=== PATIENT | female | born 1960 | race Caucasian/White ===

== ENCOUNTER → 2023-02-22 15:30 | Outpatient (BNVA) | payer OTHER, SELFPAY | PROVIDERS: Referring Provider Dermatology; Visit Provider Specialist | DX: M25.551 Pain in right hip (principal); M54.50 Low back pain, unspecified; M89.9 Disorder of bone, unspecified; R93.7 Abnormal findings on diagnostic imaging of other parts of musculoskeletal system; M25.561 Pain in right knee | CPT/HCPCS: 73502; 73560; 73565 ==

== ENCOUNTER 2023-03-05 15:50 | Outpatient (CLI) | payer OTHER, SELFPAY ==
--- NOTE | 2023-03-05 16:45 | MR_ITS ---
WS: [id number] EXAMINATION: MR hip RT wo con* [id number] ORDER DATE: 03/05/2023 4:34 PM COMPARISON: None. HISTORY: hip pain, abnormal xray CONTRAST: None. TECHNIQUE: Coronal STIR of the Pelvis. Coronal proton density, coronal T1, axial T2 fat sat, axial T1 , sagittal T2 fat sat, and sagittal T1 performed of the hip. After contrast, axial T1 fat sat, coron al T1 fat sat, and sagittal T1 fat sat were performed. FINDINGS: Advanced degenerative arthritis RIGHT hip with diffuse abnormal infiltrative bone marrow process invo lving the RIGHT acetabulum and RIGHT ilium. Mild surrounding associated edema. Small RIGHT hip effusi on. Only trace edema in the RIGHT femoral head. No evidence of AVN in the femoral head. Edema in the RIGHT adjacent gluteus musculature. Differential considerations include diffuse infiltrative marrow process such as Paget's disease, Lymp polina and metastatic disease Chronic infection is an additional consideration. This involves the visu alized proximal pubic rami extending to the pubic root. Sacrum is normal in appearance. LEFT ilium is normal in appearance. Normal LEFT hip. Otherwise normal visualized soft tissues. MR/MR hip RT wo con* [id number] IMPRESSION: 1. Unusual diffuse infiltrative marrow process involving the RIGHT ilium with relative sparing of the RIGHT femoral head and sacrum. 2. Differential considerations include nonspecific infiltrative marrow process such as lymphoma, metastatic disease, or possibly Paget's disease. Chronic ost eomyelitis is an additional consideration. Small RIGHT hip effusion. Consider f urther evaluation with CT-guided bone biopsy. Bone scan may add additional info rmation. 3. Only trace edema in the RIGHT femoral head. Normal bone marrow signal in th e LEFT femoral head.
== END 2023-03-05 15:51 | disposition home or self-care (01) ==
PROVIDERS: PCP Family Medicine; Visit Provider Specialist
DX: M25.551 Pain in right hip (principal); M89.9 Disorder of bone, unspecified
CPT/HCPCS: 73721

== ENCOUNTER → 2023-03-10 11:05 | Outpatient (BNVA) | payer OTHER, SELFPAY | PROVIDERS: PCP Family Medicine; Visit Provider Specialist | DX: M89.9 Disorder of bone, unspecified (principal); R93.89 Abnormal findings on diagnostic imaging of other specified body structures; M25.551 Pain in right hip | CPT/HCPCS: 72170 ==

== ENCOUNTER 2023-03-18 22:29 | Emergency (ER) | payer OTHER, SELFPAY ==
[2023-03-18 22:35] VITALS: BP 186/96; PULSE 55; RESP 20; TEMP 36.3; O2SAT 97; BMI 34.6
--- NOTE | 2023-03-18 22:59 | ED_ITS ---
HPI - Back Pain/Injury General: Chief Complaint: Back Pain/Injury Stated Complaint: Rt and Back Pain Time Seen by Provider: 03/18/23 22:58 History of Present Illness: 63-year-old female comes in today with complaints of left hip pain radiating to the knee. Patient reports no falls or injuries. Review of patient's record notes that she is being evaluated further for lytic lesions of the right hip and pelvis area. Patient is scheduled to have a MRI of her knee tomorrow for furth er evaluation of the knee pain. Review of x-rays and MRI of the hip note the lytic lesions. Review of the knee notes some degenerative changes in the knee. Dr. Torres has seen the patient and is proceeding to get referral to patient's oncology for further evaluation of the abnormalities on the imaging. Patient reports understanding of this evaluation and treatment plan. Patient reports difficulty maintaining control of pain at home with acetaminophen and ibuprofen. Associated symptoms: Deny fever(s) or vomiting Review of Systems General: Reports: 10 or more systems reviewed and unremarkable except in HPI and below Const: Denies: fever(s) Card: Denies: chest pain Resp: Denies: dyspnea GI: Denies: vomiting : Denies: flank pain Musc: Reports: joint pain (Right hip) Skin/Breast: Denies: rash Neuro: Denies: headache(s) PFSH ED PFSH: Social History Smoking and tobacco status: never smoked Second hand smoke exposure: No Smoking risk assessment/counseling performed?: No Alcohol intake: never Desire information about alcohol rehabilitation?: No Counseling given: No Substance/Drug Use: never Desire information about substance/drug rehabilitation?: No Counseling given: No Adopted: No Caregiver/support person: No Lives independently: Yes Housing: Manufactured/Mobile home Number of children: 2 Number of grandchildren: 11 Highest education level completed: Some College, No Degree service: No Current occupational status: employed Current occupation: [employer] Current occupational exposures/hazards: No Pets and animals: No Sexually active: No Do you think of yourself as: Straight/Heterosexual Current gender identity: Female Special kevin needs: No Agree to transfusion: Yes Physical Exam Const: COMMON NORMALS: alert HENMT: TYMPANIC MEMBRANE: TM abnormal TM laterality: left Details: bulging and dull THROAT: posterior oropharynx normal Neck/C-Spine: CERVICAL SPINE: No Cervical spine tenderness Lymph: LYMPHATIC: No lymphadenopathy Resp: COMMON NORMALS: normal respiratory effort and clear to auscultation bilaterally AUSCULTATION: clear to auscultation bilaterally Cardio: COMMON NORMALS: regular rate and regular rhythm RATE: regular rate RHYTHM: regular rhythm Back/Pelvis: THORACIC SPINE/UPPER BACK: No thoracic spinal tenderness LUMBAR SPINE/LOWER BACK: No lumbar spinal tenderness Extremity: NARRATIVE EXTREMITY EXAM: No significant swelling or redness to the lower extremities. LEFT LOWER EXTREMITY: Yes hip joint (Increased pain and decreased range of motion of the right hip.) Neuro: SENSORIUM/ORIENTATION: Yes alert Skin: COMMON NORMALS: turgor normal GENERAL SKIN EXAM: turgor normal Course Vital Signs: Vital signs: Vital Signs Temperature 97.4 F L 03/18/23 22:35 Pulse Rate 55 L 03/18/23 22:35 Respiratory Rate 20 H 03/18/23 22:35 Blood Pressure 186/96 03/18/23 22:35 Pulse Oximetry 97 03/18/23 22:35 Oxygen Delivery Me thod Room Air 03/18/23 22:35 MDM - Back Pain/Injury Medical Decision Making 63-year-old female patient comes in today for complaints of pain in the right hip radiating to the knee. Patient appears nontoxic. Patient appears in moderate to severe pain. Decreased range of motion of the hip due to pain. Respirations are even lungs are clear to auscultation. Skin is warm and dry. Differential diagnosis includes pain due to metastasis of the bone, arthritis, sciatica. Review of the record and abnormalities noted with imaging suspect patient probably had pain secondary to lytic lesions to the right hip and pelvis. Patient was given 4 mg of morphine for better control of pain in the ER. We will continue patient on tramadol to use as needed. Recommend follow-up with primary care or specialist for further treatment. Before discharge patient did make some complaints of her left ear having pain and decreased hearing. On exam of the ear is noted patient has fluid behind it and is bulging with minimal to no redness. Believe the patient probably has serous otitis. Patient had recently just finished a round of methylprednisolone for the ear with no relief. Due to the persistence of symptoms we will go ahead and treat with Augmentin 875 twice a day for 7 days for otitis serous. Patient stated understanding and agreed to plan. Discharge Plan Discharge Patient Disposition: Home Clinical Impression: Hip pain, right, Radiodense bone lesion present on x-ray Otitis media, serous Qualifiers: Chronicity: unspecified Laterality: left Qualified Code(s): H65.92 - Unspecified nonsuppurative otitis media, left ear Condition: Stable Prescriptions: New tramadol 50 mg tablet 50 mg PO Q6H PRN (Reason: pain (scale score 7-10)) Qty: 20 0RF amoxicillin-pot clavulanate 875-125 mg tablet 1 tab PO BID Qty: 13 0RF No Action ibuprofen 200 mg tablet 200 mg PO Q6H PRN Discharge Orders: Discharge ED (Routine); Ordered 03/18/23 Ordered By: Hermelindo Diaz Referrals: Farheen Wilks MD [Primary Care Provider] - Discharge Diet: Usual diet Discharge Activity: Increase activity as tolerated Patient Instructions: Opioid Safety, Pain Management Activity Restrictions/Additional Instructions: Home and rest. Activity as tolerated. Use acetaminophen and ibuprofen to control pain. Use tramadol for severe pain. Use ice or heat for further pain relief. Follow-up with primary care for further evaluation and treatment of pain. Return to ED for new concerns. Coding Level of Care Code ED Instrumentation Instructor for Ramón Martin
[2023-03-18] MEDS: morphine 4 mg/mL SDV 1 mL IM (23:38)
[2023-03-18] MEDS: ondansetron 4 MG Tablet PO (23:38)
[2023-03-18] MEDS: amoxicillin-clav 875-125 mg Tablet 1 TAB PO (23:38)
[2023-03-18 23:45] VITALS: BP 159/65; PULSE 87; RESP 18; O2SAT 97
== END 2023-03-18 23:59 | disposition home or self-care (01) ==
PROVIDERS: Emergency Provider Nurse Practitioner Family; PCP Family Medicine
DX: M25.552 Pain in left hip (principal); M89.9 Disorder of bone, unspecified; H65.92 Unspecified nonsuppurative otitis media, left ear
CPT/HCPCS: 96372; 99284; J2270; Q0162

== ENCOUNTER 2023-03-19 14:49 | Outpatient (CLI) | payer OTHER, SELFPAY ==
--- NOTE | 2023-03-19 15:15 | MR_ITS ---
WS: [id number] MRI RIGHT KNEE NONCONTRAST TECHNIQUE: Axial PD, coronal PD fat sat, coronal PD, sagittal PD, and sagittal PD fat-sat images obta ined. CLINICAL INFORMATION: positive mc cameron's sign COMPARISON: None. FINDINGS: Distal quadriceps and patella tendons are intact. Normal ACL and PCL. Small suprapatellar protrusion . Soft tissue edema about the RIGHT knee. Hypertrophic changes about the joint line. Moderate chondro malacia patella. Medial and lateral meniscus are normal in appearance. Normal medial and lateral varun ateral ligaments. Normal popliteal fossa. Chronic thinning of the medial and lateral meniscus. Periph eral extrusion of the lateral meniscus. Complex tear involving the anterior horn lateral meniscus with blunting. Chronic intrasubstance sign al abnormality involving the posterior horn medial meniscus. Tiny tear involving the posterior horn m edial meniscus extending to the articular surface. Moderate to advanced tricompartmental arthritis RIGHT knee. Hypertrophic patella. MR/MR knee RT wo con* [id number] IMPRESSION: 1. Normal ACL and PCL. 2. Moderate to advanced tricompartmental arthritis RIGHT knee with hypertrophi c changes along the joint line. 3. Grade III chondromalacia patella. 4. Chronic thinning with peripheral extrusion of the lateral meniscus. Complex tear involving the anterior horn lateral meniscus with blunting of the anterio r horn. 5. Tiny tear involving the posterior horn medial meniscus. 6. Normal medial and lateral collateral ligaments. Outbridge grading: grade III: partial-thickness cartilage loss with focal ulcer ation
== END 2023-03-19 14:50 | disposition home or self-care (01) ==
PROVIDERS: PCP Family Medicine; Visit Provider Specialist
DX: S83.206A Unspecified tear of unspecified meniscus, current injury, right knee, initial encounter (principal); X58.XXXA Exposure to other specified factors, initial encounter; M22.41 Chondromalacia patellae, right knee
CPT/HCPCS: 73721

== ENCOUNTER 2023-04-09 13:06 | Outpatient (CLI) | payer OTHER, SELFPAY ==
--- NOTE | 2023-04-09 13:30 | CT_ITS ---
WS: [id number] NONCONTRAST CT RIGHT HIP TECHNIQUE: Noncontrast CT RIGHT with coronal and sagittal reformatted images. CLINICAL INFORMATION: abnormal MRI suggestive of tumor, hip pain COMPARISON: None. DLP: 1042.[address] scans at [facility] use at least one of these dose optimization techniques: automated e xposure control; mA and/or kV adjustment per patient size (includes targeted exams where dose is matc hed to clinical indication); or iterative reconstruction. FINDINGS: Again seen is the diffuse infiltrative lytic marrow process involving the RIGHT ilium extending into the acetabulum. This does not cross the SI joint. Sacrum appears normal. Small joint effusion. No acu te fractures. Moderate degenerative narrowing RIGHT hip. Femoral head appears. Findings are similar t o the prior MRI. Associated soft tissue thickening about the ilium similar to the prior MRI. Differen tial considerations are unchanged including metastatic disease, lymphoma, multiple myeloma, and prima ry osseous neoplasm. Paget's disease less likely. Partially visualized haziness in the central mesentery. This can be further evaluated with CT abdomen pelvis. CT/CT hip RT wo con* [id number] IMPRESSION: 1. Diffuse irregular infiltrative lytic marrow process stable in appearance s reva the prior MRI. 2. Small RIGHT joint effusion. Mild soft tissue thickening about the RIGHT briseyda um. 3. Differential considerations are unchanged from previous but suspicious for metastatic disease in a patient this age. Consider further evaluation with bone scan and CT-guided biopsy. 4. Partially visualized haziness in the central mesentery. Recommend further e valuation with contrast-enhanced CT abdomen pelvis.
== END 2023-04-09 13:07 ==
PROVIDERS: PCP Family Medicine; Visit Provider Specialist
DX: M89.9 Disorder of bone, unspecified (principal); R93.89 Abnormal findings on diagnostic imaging of other specified body structures; M25.551 Pain in right hip
CPT/HCPCS: 72170; 73700

== ENCOUNTER 2023-07-23 15:11 | Outpatient (CLI) | payer OTHER, SELFPAY ==
--- NOTE | 2023-07-23 15:30 | CT_ITS ---
WS: [id number] CT ABDOMEN AND PELVIS WITH CONTRAST HISTORY: metastatic disease, history of breast cancer. TECHNIQUE: Imaging performed of the abdomen and pelvis with IV contrast. Single phase imaging of the abdomen. Coronal and sagittal reformats are submitted. All CT scans at [facility] use at [address] one of these dose optimization techniques: automated exposure control; mA and/or kV adjustment per patient size (includes targeted exams where dose is matched to clinical indication); or iterative re construction. IV CONTRAST: Omnipaque 350; 100 mL IV. Oral contrast: No DLP: 795.43 mGy.cm COMPARISON: CT hip 04/09/2023. Lower thorax: Lung bases are clear. Heart is normal size. No hiatal hernia. Bilateral breast implants . Liver/biliary system: Bilateral breast implants. Gallbladder: Cholelithiasis without acute cholecystitis. Pancreas: Normal size pancreas and pancreatic duct. No adjacent inflammation. Spleen: Normal size spleen. No mass or infarct. Adrenal glands: Normal. Right kidney: Normal. Left kidney: Normal. Aorta: Mild atherosclerosis with no aneurysm. Lymphadenopathy: No adenopathy identified. There is mild mesenteric misting without significant adeno den. Free fluid: None. GI tract: Unremarkable. Abdominal wall: Fat containing umbilical hernia. Pelvis: No free fluid or adenopathy within the pelvis. Uterus and ovaries remain. Bones: Mild increase in the lumbar lordosis. Disc space narrowing and degeneration throughout the lum bar spine. Reidentified is the destructive, infiltrative process with lytic and sclerotic changes involving a la rge portion of the RIGHT ilium extending through the acetabulum of the RIGHT hip. Cortex of the RIGHT pelvis is being destroyed. These findings have progressed since 04/09/2023. There is increased soft t issue surrounding the ileum and the acetabulum. There is also involvement of the posterior RIGHT isch ium. Healed rib fracture in the posterior inferior RIGHT chest wall. IMPRESSION: 1. Mixed sclerotic and lytic infiltrating bone lesion involving the RIGHT ilium, acetabulum and isch ium. There is increased soft tissue surrounding the destroyed bone with progression since 04/09/2023. Osseous metastatic disease is likely. Less likely chronic infection. If this has not been biopsied bi opsy should be obtained. CT-guided biopsy would be possible. 2. No ascites or adenopathy within the abdomen or pelvis. 3. Mild sclerosing mesenteritis. 4. Cholelithiasis without acute cholecystitis. 5. Bilateral breast implants. 6. Moderate hiatal hernia.
[2023-07-23 16:34] LABS: Blood Urea Nitrogen 12 mg/dL (8-23); Glomerular Filtration Rate 84.2 mL/min (90-130)
[2023-07-23] MEDS: iohexol 350 mg/mL 500 mL Btl (per mL) IV (16:42)
== END 2023-07-23 15:12 | disposition home or self-care (01) ==
LOC: RAD 15:14
PROVIDERS: PCP Family Medicine; Visit Provider Specialist
DX: C79.51 Secondary malignant neoplasm of bone (principal); Z85.3 Personal history of malignant neoplasm of breast; M89.9 Disorder of bone, unspecified; K44.9 Diaphragmatic hernia without obstruction or gangrene; K80.20 Calculus of gallbladder without cholecystitis without obstruction
CPT/HCPCS: 74177; 82565; 84520; Q9967

== ENCOUNTER 2023-07-30 09:41 | Outpatient (CLI) | payer OTHER, SELFPAY ==
--- NOTE | 2023-07-30 09:30 | NM_ITS ---
WS: [id number] NUCLEAR MEDICINE BONE SCAN Radiopharmaceutical: 24.3 Tc-99m MDP mCi IV Injection site: Antecubital Postinjection imaging delay: 1 hr CLINICAL INFORMATION: metastatic disease COMPARISON: CT abdomen pelvis 07/23/2023 FINDINGS: Bone lesions: Irregular infiltrative marrow process involving the RIGHT ilium and acetabulum described on multiple prior studies. Increase radiotracer uptake in these regions suspicious for metastatic disease as prev iously discussed. Punctate focus of activity involving the lumbar spine approximately LEFT L3 pedicle. This is nonspeci fic but also may represent metastatic disease. Punctate foci of uptake involving the LEFT and RIGHT ribs likely due to recent trauma .Metastatic dis ease not entirely excluded. Focal radiotracer activity involving the LEFT mastoid. Recommend correlation for mastoiditis. Soft tissue contours: Normal. Kidneys: Normal. Other findings: None. IMPRESSION: 1. Increased radiotracer activity involving the RIGHT bony pelvis corresponding to the mixed lytic a nd sclerotic lesion previously described suspicious for metastatic disease. Consider CT-guided biopsy if this has not been performed previously. 2. Punctate focus of uptake involving the LEFT approximately L3 pedicle nonspecific but suspicious f or metastatic disease. 3. Punctate foci of activity involving bilateral posterolateral ribs likely due to reported recent t rauma. 4. Focal increased activity involving the LEFT mastoid suspicious for mastoiditis. Recommend clinica l correlation for mastoiditis or prior mastoid surgery. This could be further evaluated with temporal bone CT if indicated. Metastatic disease in this location less likely.
== END 2023-07-30 09:42 | disposition home or self-care (01) ==
LOC: RAD 09:41
PROVIDERS: Visit Provider Specialist
DX: C79.9 Secondary malignant neoplasm of unspecified site (principal); M89.9 Disorder of bone, unspecified
CPT/HCPCS: 78306; A9561